=== PATIENT | male | born 1995 | race African-American/Black ===

== ENCOUNTER 2021-02-05 11:18 | Inpatient (IN) | payer OTHER ==
[2021-02-05] MEDS ORDERED: ACETAMINOPHEN 325 MG TABLET (FP) PO PRN (12:03)
[2021-02-05] MEDS ORDERED: LOPERAMIDE HCL 2 MG CAPSULE PO PRN (12:03)
[2021-02-05] MEDS ORDERED: guaiFENesin 200 MG/10 ML 10 ML UNIT-DOSE CUPS PO PRN (12:03)
[2021-02-05] MEDS ORDERED: MAGNESIUM CITRATE 300 ML BOTTLE PO PRN (12:03)
[2021-02-05] MEDS ORDERED: MAG HYDROX/AL HYDROX/SIMETH 30 ML UNIT-DOSE CUP PO PRN (12:03)
[2021-02-05] MEDS ORDERED: MAGNESIUM HYDROX 2400MG/30ML ORAL SUSPENSION 30 ML CUP PO PRN (12:03)
[2021-02-05] MEDS ORDERED: P-EPHED 60MG/TRIPROLIDI 2.5MG TABLET PO PRN (12:03)
[2021-02-05] MEDS ORDERED: IBUPROFEN 400 MG TABLET (FP) PO PRN (12:03)
[2021-02-05 12:49] VITALS: BMI 24.7
[2021-02-05] MEDS ORDERED: hydrOXYzine PAMOATE 25 MG CAPSULE (FP) PO SCH (14:00)
[2021-02-05] MEDS: PRENATAL VITAMINS W/ FOLIC ACID TABLET (FP) PO SCH (14:32)
[2021-02-05] MEDS: NICOTINE 7 MG/24 HOURS TOPICAL PATCH TD SCH (14:32)
[2021-02-05] MEDS: NICOTINE 10 MG CARTRIDGE (INHALER) IH PRN (14:35)
[2021-02-05 18:37] LABS: HEMATOCRIT 41.4 % (35.4-49); HEMOGLOBIN 14.3 GM/dL (11.7-16.9); MCH 34.7 pg (25.7-33.7); MCHC 34.5 g/dl (32.0-35.9); MEAN CELL VOLUME 100.4 fl (80-96); MEAN PLT VOLUME 8.1 fl (7.5-11.1); PLATELET COUNT 256 10^3/uL (134-434); RBC 4.12 M/mm3 (4.00-5.60); RDW 12.2 % (11.9-15.9); WHITE BLOOD COUNT 5.3 K/mm3 (4.0-10.0)
[2021-02-05 18:43] LABS: CALCIUM 9.4 mg/dL (8.5-10.1)
[2021-02-05 18:44] LABS: ALBUMIN 4.2 g/dl (3.4-5.0); BLOOD UREA NITROGEN 9.7 mg/dL (7-18)
[2021-02-05 18:47] LABS: CREATININE 1.1 mg/dL (0.55-1.3)
[2021-02-05 18:48] LABS: BILIRUBIN,TOTAL 0.6 mg/dL (0.2-1)
[2021-02-05 18:49] LABS: TOT PROT 7.5 g/dl (6.4-8.2)
[2021-02-05 19:08] LABS: SYPHILIS W/ RPR CONF NON-REACTIVE (NONREACTIVE)
[2021-02-05] MEDS: THIAMINE HCL 100 MG TABLET (FP) PO SCH (21:17)
[2021-02-05] MEDS: MIRTAZAPINE 15 MG TABLET (FP) PO SCH (21:17)
[2021-02-05] MEDS: SUVOREXANT 10 MG TABLET PO PRN (21:19)
[2021-02-05] MEDS ORDERED: MELATONIN 5 MG TABLETS PO SCH (22:00)
[2021-02-06 07:06] VITALS: PULSE 64
[2021-02-06] MEDS: PRENATAL VITAMINS W/ FOLIC ACID TABLET (FP) PO SCH (09:37)
[2021-02-06] MEDS: NICOTINE 7 MG/24 HOURS TOPICAL PATCH TD SCH (09:38)
[2021-02-06] MEDS: NICOTINE 10 MG CARTRIDGE (INHALER) IH PRN (11:36)
[2021-02-06] MEDS: SUVOREXANT 10 MG TABLET PO PRN (21:11)
[2021-02-06] MEDS: MIRTAZAPINE 15 MG TABLET (FP) PO SCH (21:12)
[2021-02-06] MEDS: THIAMINE HCL 100 MG TABLET (FP) PO SCH (21:12)
[2021-02-07] MEDS: NICOTINE 7 MG/24 HOURS TOPICAL PATCH TD SCH (09:35)
[2021-02-07] MEDS: PRENATAL VITAMINS W/ FOLIC ACID TABLET (FP) PO SCH (09:35)
[2021-02-07] MEDS: NICOTINE 10 MG CARTRIDGE (INHALER) IH PRN ×2 (09:36→21:08)
[2021-02-07 12:29] LABS: EPI CELLS 7 /uL (0-25.1); HYALINE CASTS 1 /uL (0-3.1); PH,URINE 7.5 (5.0-8.0); URINE APPEARANCE CLEAR; URINE BACTERIA 4 /uL (0-1359); URINE BILIRUBIN NEGATIVE (NEGATIVE); URINE COLOR YELLOW; URINE GLUCOSE (UA) NEGATIVE (NEGATIVE); URINE KETONE NEGATIVE (NEGATIVE); URINE LEUK ESTERASE 1+ (NEGATIVE); URINE NITRITE NEGATIVE (NEGATIVE); URINE PROTEIN NEGATIVE (NEGATIVE); URINE RBC 1 /uL (0-23.9); URINE UROBILINOGEN 0.2 mg/dL (0.2-1.0); URINE WBC 134 /uL (0-25.8)
[2021-02-07] MEDS: SUVOREXANT 10 MG TABLET PO PRN (21:07)
[2021-02-07] MEDS: MIRTAZAPINE 15 MG TABLET (FP) PO SCH (21:07)
[2021-02-07] MEDS: THIAMINE HCL 100 MG TABLET (FP) PO SCH (21:07)
[2021-02-08] MEDS: PRENATAL VITAMINS W/ FOLIC ACID TABLET (FP) PO SCH (09:38)
[2021-02-08] MEDS: NICOTINE 10 MG CARTRIDGE (INHALER) IH PRN ×2 (09:39→21:25)
[2021-02-08] MEDS: NICOTINE 7 MG/24 HOURS TOPICAL PATCH TD SCH (09:39)
[2021-02-08] MEDS: hydrOXYzine PAMOATE 25 MG CAPSULE (FP) PO PRN (21:23)
[2021-02-08] MEDS: MIRTAZAPINE 15 MG TABLET (FP) PO SCH (21:23)
[2021-02-08] MEDS: THIAMINE HCL 100 MG TABLET (FP) PO SCH (21:23)
[2021-02-08] MEDS: SUVOREXANT 10 MG TABLET PO PRN (21:25)
[2021-02-09 07:56] VITALS: BP 112/73; TEMP 97.8
[2021-02-09] MEDS: NICOTINE 10 MG CARTRIDGE (INHALER) IH PRN ×2 (08:43→21:33)
[2021-02-09] MEDS: PRENATAL VITAMINS W/ FOLIC ACID TABLET (FP) PO SCH (10:27)
[2021-02-09] MEDS: NICOTINE 7 MG/24 HOURS TOPICAL PATCH TD SCH (10:27)
[2021-02-09] MEDS: MIRTAZAPINE 15 MG TABLET (FP) PO SCH (21:31)
[2021-02-09] MEDS: SUVOREXANT 10 MG TABLET PO PRN (21:31)
[2021-02-09] MEDS: hydrOXYzine PAMOATE 25 MG CAPSULE (FP) PO PRN (21:32)
[2021-02-09] MEDS: THIAMINE HCL 100 MG TABLET (FP) PO SCH (21:32)
[2021-02-10] MEDS ORDERED: SUVOREXANT 10 MG TABLET PO PRN (08:49)
[2021-02-10] MEDS: NICOTINE 7 MG/24 HOURS TOPICAL PATCH TD SCH (11:02)
[2021-02-10] MEDS: NICOTINE 10 MG CARTRIDGE (INHALER) IH PRN (11:03)
[2021-02-10] MEDS: PRENATAL VITAMINS W/ FOLIC ACID TABLET (FP) PO SCH (11:04)
[2021-02-10] MEDS ORDERED: SUVOREXANT 15 MG TABLET PO PRN (22:00)
== END 2021-02-10 15:53 | disposition home or self-care (01) | DRG 772 ==
LOC: YASAS 11:18 → Y5N 13:29
PROVIDERS: ADMIT Allergy & Immunology; ATTEND Allergy & Immunology
PROC: HZ42ZZZ Group Counseling for Substance Abuse Treatment, Cognitive-Behavioral (ICD-10-PCS; principal; 2021-02-05)
DX: F10.20 Alcohol dependence, uncomplicated (principal); F12.20 Cannabis dependence, uncomplicated; F17.210 Nicotine dependence, cigarettes, uncomplicated; F19.282 Other psychoactive substance dependence with psychoactive substance-induced sleep disorder; G47.00 Insomnia, unspecified
CPT/HCPCS: 36415; 71046-TC-FY; 80053; 81003; 85027; 86780; 86803; 87086; 87811; C9803; T1023-GT; U0003; U0005